=== PATIENT | female | born 1985 | race Caucasian/White ===

== ENCOUNTER 2019-05-09 12:39 | Inpatient (IN) | payer MEDICAID ==
[~2019-05-09] VITALS: Ht 154.9 cm; Wt 109.1 kg
[~2019-05-09 12:39] MED LIST: PREN-6 PO; PREN1TAB71 PO
[2019-05-09 13:56] VITALS: BP 125/70; PULSE 102; RESP 18
[2019-05-09 13:58] VITALS: Ht 154.9 cm; Wt 109.1 kg
[2019-05-09] MEDS ORDERED: LACTATED RINGER'S 250 ML IV ONE (14:30)
[2019-05-09] MEDS ORDERED: CEFAZOLIN 2 GM/50 ML (PMX) 50 ML IVPB ONE (14:30)
[2019-05-09] MEDS ORDERED: ACETAMINOPHEN 500 MG TAB PO STA (17:07)
[2019-05-09] MEDS: LACTATED RINGER'S 1,000 ML IV SCH ×2 (20:57→23:47)
[2019-05-09] MEDS: CEFAZOLIN 1 GM/50 ML (PMX) 50 ML IVPB SCH (22:00)
[2019-05-10] MEDS: ACETAMINOPHEN 500 MG TAB PO PRN ×3 (00:52→23:13)
[2019-05-10] MEDS: LACTATED RINGER'S 1,000 ML IV SCH ×4 (05:34→23:07)
[2019-05-10] MEDS: CEFAZOLIN 1 GM/50 ML (PMX) 50 ML IVPB SCH (05:43)
[2019-05-10] MEDS: CEFAZOLIN 2 GM/50 ML (PMX) 50 ML IVPB SCH ×2 (14:32→21:54)
[2019-05-11] MEDS: CEFAZOLIN 2 GM/50 ML (PMX) 50 ML IVPB SCH ×3 (05:39→22:12)
[2019-05-11] MEDS: LACTATED RINGER'S 1,000 ML IV SCH ×2 (07:24→16:46)
[2019-05-11] MEDS: ACETAMINOPHEN 500 MG TAB PO PRN (16:42)
[2019-05-12] MEDS: LACTATED RINGER'S 1,000 ML IV SCH (01:15)
[2019-05-12] MEDS: CEFAZOLIN 2 GM/50 ML (PMX) 50 ML IVPB SCH (05:46)
== END 2019-05-12 13:18 | disposition home or self-care (01) | DRG 833 ==
LOC: OBT 12:39 → L-D 12:43 → OBT 17:07 → PP1 17:51
PROVIDERS: ADMIT Obstetrics & Gynecology Obstetrics; ATTEND Obstetrics & Gynecology
DX: O23.03 Infections of kidney in pregnancy, third trimester (principal); Z3A.30 30 weeks gestation of pregnancy
CPT/HCPCS: 36415; 76817; 76818; 80053; 81001; 85025; 87086; 96360; 96361; G0463; J0690; J7120

== ENCOUNTER 2019-06-04 18:48 | Inpatient (IN) | payer MEDICAID ==
[~2019-06-04] VITALS: Ht 152.4 cm; Wt 111.9 kg
[~2019-06-04 18:48] MED LIST changes: -PREN-6 PO
[2019-06-04 19:03] VITALS: BP 123/76
[2019-06-04] MEDS ORDERED: LACTATED RINGER'S 1,000 ML IV SCH (20:00)
[2019-06-04] MEDS ORDERED: LACTATED RINGER'S 1,000 ML IV ONE (20:00)
[2019-06-04] MEDS ORDERED: MAGNESIUM SULFATE 20 GM/500 ML 500 ML IV SCH ×2 (22:13→22:14)
[2019-06-04] MEDS: LACTATED RINGER'S 1,000 ML IV SCH (22:13)
[2019-06-04] MEDS ORDERED: MAGNESIUM SULFATE 40GM/1000ML 1,000 ML IV SCH (22:30)
[2019-06-04] MEDS ORDERED: MAGNESIUM SULFATE 4 GM/100 ML 100 ML IV ONE ×2 (22:30)
[2019-06-05] MEDS ORDERED: CARBOPROST 250 MCG INJ IM PRN ×2 (01:00→06:30)
[2019-06-05] MEDS ORDERED: OXYTOCIN 30 UNITS/LR 500 ML IV SCH ×2 (01:00→06:18)
[2019-06-05] MEDS ORDERED: OXYTOCIN 30 UNITS/LR 500 ML IV PRN ×2 (01:00→06:30)
[2019-06-05] MEDS ORDERED: CEFAZOLIN 3 GM in DEXTROSE 5% 100 ML IV ONE (01:00)
[2019-06-05] MEDS ORDERED: METHYLERGONOVINE 0.2 MG INJ IM PRN ×2 (01:00→06:30)
[2019-06-05] MEDS ORDERED: MISOPROSTOL 200 MCG TAB PR PRN ×2 (01:00→06:30)
[2019-06-05] MEDS ORDERED: FENTAnyl 50 MCG/ML VIAL ONE (02:10)
[2019-06-05] MEDS ORDERED: OXYTOCIN 30 UNITS/LR 500 ML BAG IV ONE (02:10)
[2019-06-05] MEDS ORDERED: PHENYLephrine (100 MCG/ML) 10ML SYG ONE (03:20)
[2019-06-05] MEDS ORDERED: EPHEDrine 25 MG/5 ML SYG ONE (03:20)
[2019-06-05] MEDS ORDERED: NALBUPHINE HCL (10 MG/1 ML) INJ IV PRN (04:00)
[2019-06-05] MEDS ORDERED: TRIMETHOBENZAMIDE 100 MG/ML VIAL IM PRN (04:00)
[2019-06-05] MEDS ORDERED: DIPHENHYDRAMINE 50 MG INJ IV PRN (04:00)
[2019-06-05] MEDS ORDERED: ONDANSETRON 4 MG INJ IV PRN (04:00)
[2019-06-05] MEDS ORDERED: HYDROmorphONE 0.5 MG/0.5 ML SYG IV PRN ×2 (04:00)
[2019-06-05] MEDS ORDERED: morphine 2 MG INJ IV PRN ×2 (04:00)
[2019-06-05] MEDS ORDERED: NALOXONE (0.4 MG/ML) INJ IV PRN (04:00)
[2019-06-05] MEDS: KETOROLAC 30 MG INJ IV PRN ×2 (05:29→11:55)
[2019-06-05 06:30] VITALS: BP 116/68; PULSE 78; RESP 20
[2019-06-05] MEDS ORDERED: LANOLIN HPA 1 PKT TOP PRN (06:30)
[2019-06-05] MEDS ORDERED: NACL 0.9% 3 ML SYG IV SCH (06:30)
[2019-06-05 08:40] VITALS: BP 125/77; PULSE 80; RESP 18
[2019-06-05] MEDS: SENNA/DOCUSATE NA (8.6MG/50MG) TAB PO SCH ×2 (09:41→21:49)
[2019-06-05 12:26] VITALS: BP 128/77; PULSE 81; RESP 18
[2019-06-05] MEDS: LACTATED RINGER'S 1,000 ML IV SCH (16:15)
[2019-06-05 16:42] VITALS: BP 117/59; PULSE 86; RESP 18
[2019-06-06 00:05] VITALS: BP 124/78; PULSE 86; RESP 18
[2019-06-06] MEDS: LACTATED RINGER'S 1,000 ML IV SCH (00:53)
[2019-06-06] MEDS: KETOROLAC 30 MG INJ IV PRN (02:31)
[2019-06-06 03:24] VITALS: BP 127/80; PULSE 82; RESP 18
[2019-06-06] MEDS: IBUPROFEN 600 MG TAB PO SCH ×3 (05:34→21:37)
[2019-06-06 08:00] VITALS: BP 132/72; PULSE 83; RESP 18
[2019-06-06] MEDS: SENNA/DOCUSATE NA (8.6MG/50MG) TAB PO SCH ×2 (08:50→21:37)
[2019-06-06 16:00] VITALS: BP 139/83; PULSE 90; RESP 18
[2019-06-06 21:00] VITALS: BP 131/71; PULSE 86; RESP 20
[2019-06-06] MEDS: OXYCODONE/ACETAMINOPHEN (5/325) TAB PO PRN (21:38)
[2019-06-07] MEDS: IBUPROFEN 600 MG TAB PO SCH ×5 (03:00→23:56)
[2019-06-07 04:00] VITALS: BP_SYST 125; BP_SYST 131; BP_DIAS 71; BP_DIAS 82; PULSE 78; PULSE 86; RESP 18; RESP 20
[2019-06-07 08:00] VITALS: BP 114/70; PULSE 87; RESP 18
[2019-06-07] MEDS: SENNA/DOCUSATE NA (8.6MG/50MG) TAB PO SCH ×2 (10:06→21:08)
[2019-06-07] MEDS: OXYCODONE/ACETAMINOPHEN (5/325) TAB PO PRN (10:06)
[2019-06-07 16:00] VITALS: BP 132/72; PULSE 76; RESP 18
[2019-06-07 20:30] VITALS: BP 124/70; PULSE 87; RESP 18
[2019-06-08 04:00] VITALS: BP 130/75; PULSE 80; RESP 18
[2019-06-08] MEDS: IBUPROFEN 600 MG TAB PO SCH ×2 (06:19→12:02)
[2019-06-08 09:00] VITALS: BP 128/81; PULSE 93; RESP 18
[2019-06-08] MEDS ORDERED: DIPHTH/TET/ACEL PERTUSS (ADULT) 0.5 ML VIAL IM* ONE (09:00)
[2019-06-08] MEDS: SENNA/DOCUSATE NA (8.6MG/50MG) TAB PO SCH (09:16)
== END 2019-06-08 12:45 | disposition home or self-care (01) | DRG 788 ==
LOC: OBT 18:48 → L-D 18:49 → OBT 20:03 → L-D 22:13 → PP1 06-05 06:21
PROVIDERS: ADMIT Obstetrics & Gynecology; ATTEND Obstetrics & Gynecology
PROC: 10D00Z1 Extraction of Products of Conception, Low, Open Approach (ICD-10-PCS; principal; 2019-06-05 02:00)
DX: O60.13X0 Preterm labor second trimester with preterm delivery third trimester, not applicable or unspecified (principal); O65.5 Obstructed labor due to abnormality of maternal pelvic organs; O34.211 Maternal care for low transverse scar from previous cesarean delivery; Z3A.34 34 weeks gestation of pregnancy; Z37.0 Single live birth
CPT/HCPCS: 36415; 76815; 76818; 80053; 81001; 85025; 85610; 85730; 86592; 86850; 86900; 86901; 87086; 87340; 96360; G0463; J0690; J1200; J1885; J2370; J2405; J2590; J3010; J7120